=== PATIENT | female | born 2000 | race Two or more races ===

== ENCOUNTER 2022-11-02 06:50 | Day surgery (SDC) | payer OTHER | END 2022-11-02 17:00 | disposition home or self-care (01) | LOC: CIR.AMB 06:50 | PROVIDERS: ATTEND Orthopaedic Surgery Hand Surgery | DX: S52.531A Colles' fracture of right radius, initial encounter for closed fracture (principal); Z20.822 Contact with and (suspected) exposure to COVID-19; E11.9 Type 2 diabetes mellitus without complications; E78.00 Pure hypercholesterolemia, unspecified; E78.3 Hyperchylomicronemia | CPT/HCPCS: 25609; 25118; 25280; L8699 ==